=== PATIENT | female | born 1955 | race Caucasian/White ===

== ENCOUNTER 2025-07-24 15:39 | Emergency (ER) | payer OTHER, SELFPAY ==
[2025-07-24 15:42] VITALS: BP 165/64
[2025-07-24 15:50] VITALS: BP 165/64; BMI 19.1
--- NOTE | 2025-07-24 16:10 | ED.GENMED ---
History of Present Illness
General
Chief Complaint: Fall
Source: patient
Time Seen by Provider: 07/24/25 15:53
History of Present Illness
History of Present Illness:
69-year-old female presents to emergent complaint left shoulder pain. Patient was standing on a chair dusting when she lost her balance and fell. She has left shoulder pain. She is right-hand dominant. Pain is severe and worse with minimal
movement. She is concerned she may have dislocated her arm. Patient had a mastectomy for breast cancer on the left side several months ago. She states that she has a limb alert on that side and has been having some chronic shoulder pain after the
surgery. She denies any injury. She does not take any oral anticoagulants.
Past History
Past History
ED Past Medical History: None
Social History
Tobacco: Non-smoker
Personal:
Living: with family
Employment: Employed
Phy Exam
Physical Exam
Physical Exam:
General: Awake, Alert, Oriented X3. No acute distress but uncomfortable due to shoulder pain
Vitals: unremarkable
Head: Atraumatic
Eyes: Pupils equal, EOMI
Throat: Airway intact, no exudates
Neck: Trachea midline
Lungs: Clear and equal b/l
Heart: Regular rate, no murmurs
Abd: Soft, Nontender, No pulsatile mass
Neuro: No focal deficit
Skin: Warm, dry, no rash
Extremities: pulses equal b/l left shoulder: Swelling and ecchymosis noted about the left shoulder. The shoulder does have an abnormal appearance but unclear if it is truly dislocated or if there is swelling from trauma. Patient unable to tolerate
any movement at the left shoulder.
Course
Orders/Labs/Results
Orders:
Orders
07/24/25 16:10
HYDROmorphone [Dilaudid] 0.5 mg IV NOW STA
Shoulder, Left, Trauma CR [CR Shoulder, Trauma - Left] Urgent
Comment:
Reason For Exam: pain after a fall
07/24/25 16:11
Ondansetron Injectable [Zofran] 4 mg IV NOW STA
07/24/25 16:12
Ondansetron Injectable [Zofran] 4 mg .ROUTE .STK-MED ONE
07/24/25 18:19
Acetaminophen [Tylenol] 1,000 mg PO NOW STA
Ibuprofen [Motrin] 600 mg PO NOW STA
Vital Signs
Initial and Last Documented VS:
Initial Vital Signs
BP
165/64
07/24/25 15:42
Last Documented Vital Signs
Temp Pulse Resp BP Pulse Ox
98.1 F 71 20 165/64 100
07/24/25 15:50 07/24/25 15:50 07/24/25 15:50 07/24/25 15:50 07/24/25 16:10
MDM/Problems Addressed
Differential Diagnosis Includes:
Proximal humerus fracture, dislocation, fracture dislocation
MDM/Problems Addressed:
Patient presents with pain in left shoulder after a fall. Imaging shows a fracture of the proximal humerus. Neurovascular intact. Placed patient in sling have her follow-up with orthopedics as an outpatient. Will prescribe oxycodone for
analgesia but instructed her to use Tylenol and ibuprofen first-line.
*Radiology
Radiology exam reviewed: preliminary read by ED provider (Proximal humerus fracture)
*Pulse Oximetry
SaO2: 100
Oxygen Mode of Delivery: Room air
Patient hypoxic: no
*Critical Care Note
Total Time (30-74mins, 75-104mins- exclusive of procedures): Not Applicable
ED Attending Note
-
Portions of this chart may have been created with voice recognition software.� Occasional wrong word or��sound alike� substitutions may have occurred due to the inherent limitations of voice recognition software.
Discharge Plan
Departure
Patient Disposition: Home (Routine Discharge)
Date of Disposition: 07/24/25
Time of Disposition: 18:18
Patient with high blood pressure during this ER visit?: No
Condition: Good
Discharge Problem:
Fracture of proximal end of left humerus
Instructions: Upper Arm Fracture ED
Prescriptions:
New
oxycodone 5 mg tablet
5 mg PO Q6H PRN (Reason: Pain) Qty: 20 0RF
No Action
omeprazole 20 mg Capsule,Delayed Release(Dr/Ec)
20 mg PO DAILY
loratadine 10 mg Tablet
10 mg PO DAILY
Referrals:
Demetri Aguilar MD [Family Provider, Family Practice]
Gregorio Greenfield MD [Active, Orthopedics]
Activity Restrictions/Additional Instructions:
You have a fracture of the proximal humerus. Please contact Dr. Richmond to make an appointment. Call for Suarez in the morning on Saturday. For pain control you should take 650 mg of Tylenol and 600 mg of ibuprofen every 6 hours. I have sent a
prescription for oxycodone for additional pain control if needed. Keep the sling on until you see orthopedics.
Interventions
Interventions:
*Risk Screen - Suicide Last Done: 07/24/25 15:50
*General Assessment Last Done: 07/24/25 15:50
*Neglect/Abuse Screening Last Done: 07/24/25 15:50
*ED- Fall Risk Assessment Last Done: 07/24/25 15:50
*ED COVID-19 Vaccine History Last Done: 07/24/25 15:50
*ED Influenza Vaccine History Last Done: 07/24/25 15:50
*Nursing Disposition Last Done: 07/24/25 18:32
ED-Musculoskeletal Assessment Last Done: 07/24/25 15:50
ED- Neurological Assessment Last Done: 07/24/25 15:50
ED-Skin Assessment Last Done: 07/24/25 15:50
Discharge Date and Time
Discharge Date/Time: 07/24/25 18:45
Print Language: [place]
[2025-07-24] MEDS: DILAUDID 0.5 MG IV (16:13)
[2025-07-24] MEDS: ZOFRAN 4 MG IV (16:13)
[2025-07-24] MEDS: TYLENOL 1000 MG PO (18:27)
[2025-07-24] MEDS: MOTRIN 600 MG PO (18:27)
== END 2025-07-24 18:45 | disposition home or self-care (01) ==
LOC: EMR 15:39
PROVIDERS: EMERGENCY PHYSICIAN Emergency Medicine; FAMILY PHYSICIAN Family Medicine
DX: S42.292A Other displaced fracture of upper end of left humerus, initial encounter for closed fracture (principal); W07.XXXA Fall from chair, initial encounter; Y93.E9 Activity, other interior property and clothing maintenance; Y92.009 Unspecified place in unspecified non-institutional (private) residence as the place of occurrence of the external cause; Z85.3 Personal history of malignant neoplasm of breast; Z90.10 Acquired absence of unspecified breast and nipple
CPT/HCPCS: 99284; 96374; 96375; 73030

== ENCOUNTER → 2025-07-26 13:31 | Outpatient (REF) | payer OTHER, SELFPAY ==
[2025-07-26 15:40] LABS: Hematocrit 36.2 % (37.0-47.0); Hemoglobin 12.1 g/dL (12.0-16.0); Mean Corp Hgb Conc. 33.4 g/dL (33.0-37.0); Mean Corpuscular Volume 92.1 fL (81.0-99.0); Nucleated Red Blood Cells % 0 %; Platelet Count 236 10^3/uL (130-400); Red Cell Dist. Width 13.3 % (11.5-14.5)
[2025-07-26 16:02] LABS: Blood Urea Nitrogen 11 mg/dl (7-17); Calcium 9.3 mg/dl (8.4-10.2); Carbon Dioxide 31 mmol/L (22-30); Chloride 102 mmol/L (98-107); Glucose 104 mg/dl (70-99); Potassium 4.2 mmol/L (3.5-5.1); Sodium 137 mmol/L (135-145); eGFR > 60.00
== END ==
LOC: RAD 13:31
PROVIDERS: ATTENDING PHYSICIAN Orthopaedic Surgery Hand Surgery; FAMILY PHYSICIAN Family Medicine
DX: S42.2 Fracture of upper end of humerus (principal); Z01.818 Encounter for other preprocedural examination
CPT/HCPCS: 36415; 73200; 80048; 85025; 93005

== ENCOUNTER 2025-07-27 06:22 | Day surgery (SDC) | payer OTHER, SELFPAY ==
--- NOTE | 2025-07-26 16:19 | PTCARENOTE ---
Abnormal EKG reviewed by Dr. Hauser, no further action requested.
[2025-07-27] VITALS (10 sets, daily range): BP systolic 135–168; BP diastolic 69–87; BMI 19.3
[2025-07-27] MEDS: EMEND 40 MG PO (11:26)
[2025-07-27] MEDS: MOBIC 15 MG PO (11:27)
[2025-07-27] MEDS: NORMOSOL-R/PLASMALYTE-A 1000 IV (11:39)
[2025-07-27] MEDS: ANCEF 5 IV (16:01)
== END 2025-07-27 16:20 | disposition home or self-care (01) ==
LOC: SDS 06:22
PROVIDERS: ATTENDING PHYSICIAN Orthopaedic Surgery Hand Surgery
DX: S42.202A Unspecified fracture of upper end of left humerus, initial encounter for closed fracture (principal); X58.XXXA Exposure to other specified factors, initial encounter
CPT/HCPCS: 23615; 73020; 73060; 76000; C1713